=== PATIENT | male | born 1950 | race Caucasian/White ===

== ENCOUNTER 2017-07-27 19:40 | Emergency (ER) | payer MEDICARE, OTHER ==
[~2017-07-27] VITALS: Ht 177.8 cm; Wt 111.0 kg
[~2017-07-27 19:40] MED LIST: ALBU.63PRN; ARIM1TAB PO; ASPI325T PO; CYMB30CA PO; CYMB60CA PO; FENT100D T-DERMAL; GABA600T PO; HYDR-2768 PO; HYDR-3129 PO; LEVO150T7 PO; LISI-363 PO; METF500 PO; NIAC500 PO; OMEG1CAP53 PO; RED600TA PO; SYMB160A INH; TEST200I13 IM; VITA200017 PO; ZOLP10TA3 PO
[2017-07-27 19:41] VITALS: BP 136/79; PULSE 100; RESP 22; TEMP 97.7; O2SAT 98
[2017-07-27] MEDS ORDERED: ACETAMINOPHEN 325 MG TAB PO ONE (20:15)
[2017-07-27] MEDS ORDERED: methylPREDNISolone SOD SUCC 125 MG/2 ML VIAL IV PUSH ONE (20:15)
[2017-07-27] MEDS ORDERED: SODIUM CHLORID 0.9% 500 ML INJ 500 ML IV ONE ×2 (20:15→21:30)
[2017-07-27] MEDS ORDERED: SODIUM CHLORIDE 0.9% FLUSH 10 ML FLUSH IVF PRN (20:15)
[2017-07-27 20:20] VITALS: O2SAT 98
[2017-07-27 20:44] LABS: AUTOMATED NEUTROPHIL # 2.9 TH/MM3 (1.8-7.7); BASOPHIL % 0.5 % (0.0-2.0); EOSINOPHIL % 0.3 % (0.0-4.0); HEMATOCRIT 50.9 % (39.0-51.0); HEMO FLAGS DIFF FINAL; LYMPH % 22.1 % (9.0-44.0); MEAN CELL VOLUME 83.6 FL (80.0-100.0); MEAN CORPUSCULAR HEMOGLOBIN 27.6 PG (27.0-34.0); MONO % 12.9 % (0.0-8.0); NEUT % 64.2 % (16.0-70.0); PLATELET COUNT 170 TH/MM3 (150-450); RED BLOOD COUNT 6.09 MIL/MM3 (4.50-5.90); RED CELL DISTRIBUTION WIDTH 16.7 % (11.6-17.2); WHITE BLOOD COUNT 4.5 TH/MM3 (4.0-11.0)
--- NOTE | 2017-07-27 20:52 | RADRPT ---
EXAM DATE/TIME: 07/27/2017 20:28 [facility] COMPARISON: No previous studies available for comparison. INDICATIONS : Altered mental status. RADIATION DOSE: 56.35 CTDIvol (mGy) MEDICAL HISTORY : Hypertension. SURGICAL HISTORY : None. ENCOUNTER: Initial ACUITY: 1 day PAIN SCALE: 0/10 LOCATION: cranial TECHNIQUE: Multiple contiguous axial images were obtained of the head. Using automated exposure control and adj ustment of the mA and/or kV according to patient size, radiation dose was kept as low as reasonably a chievable to obtain optimal diagnostic quality images. DICOM format image data is available electro nically for review and comparison. FINDINGS: CEREBRUM: The ventricles are normal for age. No evidence of midline shift, mass lesion, hemorrhage or acute in farction. No extra-axial fluid collections are seen. POSTERIOR FOSSA: The cerebellum and brainstem are intact. The 4th ventricle is midline. The cerebellopontine angle i s unremarkable. EXTRACRANIAL: There is mucoperiosteal thickening of the visualized paranasal sinuses, especially ethmoid and spheno id. SKULL: The calvaria is intact. No evidence of skull fracture. CONCLUSION: No acute intracranial abnormality. Sinus disease. Vidal Pro MD on July 27, 2017 at 20:50 Board Certified Radiologist. This report was verified electronically.
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
[2017-07-27 21:00] LABS: APTT (PATIENT) 29.9 SEC (24.3-30.1); INTERNATIONAL NORMALIZED RATIO 1.1 RATIO
[2017-07-27 21:04] LABS: ANION GAP 7 MEQ/L (5-15); AST (GOT) 33 U/L (15-37); BICARBONATE 28.2 MEQ/L (21.0-32.0); BLOOD UREA NITROGEN 23 MG/DL (7-18); CHLORIDE 91 MEQ/L (98-107); GLOMERULAR FILTRATION RATE 60 ML/MIN (>89); POTASSIUM 3.6 MEQ/L (3.5-5.1); SODIUM (NA) 126 MEQ/L (136-145)
[2017-07-27 21:05] LABS: ALT (GPT) 31 U/L (12-78)
--- NOTE | 2017-07-27 21:05 | RADRPT ---
EXAM DATE/TIME: 07/27/2017 20:46 [facility] COMPARISON: No previous studies available for comparison. INDICATIONS : Short of breath. MEDICAL HISTORY : Diabetes mellitus type II. Chronic obstructive pulmonary disease. SURGICAL HISTORY : None. ENCOUNTER: Initial ACUITY: 1 day PAIN SCORE: 5/10 LOCATION: Bilateral chest FINDINGS: PA and lateral views of the chest demonstrate the lungs to be symmetrically aerated without evidence of mass, infiltrate or effusion. The cardiomediastinal contours are unremarkable. Osseous structure s are intact. CONCLUSION: No evidence of acute cardiopulmonary disease. Vidal Pro MD on July 27, 2017 at 21:03 Board Certified Radiologist. This report was verified electronically.
[2017-07-27] MEDS: RESP: ALBUTEROL 2.5 MG/IPRATROPIUM 0.5 MG NEB (SCH) INH (21:08)
[2017-07-27 21:09] LABS: ALKALINE PHOSPHATASE 63 U/L (45-117); TOTAL BILIRUBIN ADULT 0.5 MG/DL (0.2-1.0)
[2017-07-27 21:40] VITALS: BP 159/83; PULSE 95; RESP 22; O2SAT 99
[2017-07-27] MEDS ORDERED: MORPHINE SULFATE 4 MG/ML INJ IV PUSH ONE (21:45)
[2017-07-27] MEDS ORDERED: ONDANSETRON HCL 4 MG/2 ML VIAL IV PUSH ONE (21:45)
[2017-07-27] MEDS ORDERED: LORazepam 2 MG/ML VIAL IV PUSH ONE (22:00)
--- NOTE | 2017-07-28 11:31 | EKG ---
Date Performed: 07/27/2017 Time Performed: 20:19:53 PTAGE: 66 years EKG: Sinus rhythm MODERATE INTRAVENTRICULAR CONDUCTION DELAY BORDERLINE ECG NO PREVIOUS TRACING DOCTOR: Preston Rowe Interpretating Date/Time 07/28/2017 11:29:35
== END 2017-07-27 22:33 | disposition home or self-care (01) ==
LOC: NEPE 19:40 → EDSEX 19:40 → NEPE 22:33
DX: J11.1 Influenza due to unidentified influenza virus with other respiratory manifestations (principal); R06.02 Shortness of breath; R06.2 Wheezing; R07.9 Chest pain, unspecified; R05 Cough; R94.31 Abnormal electrocardiogram [ECG] [EKG]; I10 Essential (primary) hypertension; E11.9 Type 2 diabetes mellitus without complications; Z79.82 Long term (current) use of aspirin; Z79.84 Long term (current) use of oral hypoglycemic drugs; Z86.79 Personal history of other diseases of the circulatory system
CPT/HCPCS: 70450; 71020; 80053; 83880; 84484; 85025; 85610; 85730; 87804; 93005; 94640; 94664; 96361; 96374; 96375; 99285; J2060; J2405; J2930; J7040

== ENCOUNTER → 2018-03-12 | Outpatient (CLI) | payer OTHER, MEDICARE ==
[~2018-03-12] MED LIST changes: +BUTA1CAP PO; +CELE1CAP8 PO; +DULO1CAP2 PO; +FENT75T T-DERMAL; +HYDR-3583 PO; +HYDR25TA5 PO; +IPRA0.02 NEB; +LISI-519 PO; +METF500T PO; +METH750T PO; +OMEG1CAP28 PO; +PRAV40TA2 PO; +PROP40TA3 PO; +TEST200I12 IM
[2018-03-12 09:19] LABS: HEMATOCRIT 50.6 % (39.0-51.0); MEAN CELL VOLUME 89.8 FL (80.0-100.0); MEAN CORPUSCULAR HEMOGLOBIN 30.1 PG (27.0-34.0); MEAN CORPUSCULAR HGB CONC 33.5 % (32.0-36.0); PLATELET COUNT 193 TH/MM3 (150-450); RED BLOOD COUNT 5.64 MIL/MM3 (4.50-5.90); RED CELL DISTRIBUTION WIDTH 13.6 % (11.6-17.2); WHITE BLOOD COUNT 8.7 TH/MM3 (4.0-11.0)
[2018-03-12 09:27] LABS: PROTHROMBIN TIME - PATIENT 10.3 SEC (9.8-11.6)
[2018-03-12 09:28] LABS: BILIRUBIN, URINE NEG (NEG); BLOOD, URINE NEG (NEG); GLUCOSE,URINE NEG (NEG); HYALINE CAST, URINE 7 /lpf (RARE); KETONE, URINE NEG (NEG); MUCUS URINE FEW /lpf (OCC); NITRITE,URINE NEG (NEG); PH, URINE 5.5 (5.0-8.5); SQUAMOUS EPITHELIAL CELL URINE <1 /hpf (0-5); URINE COLOR YELLOW (YELLW/STRAW); URINE LEUKOCYTE ESTERASE NEG (NEG)
[2018-03-12 09:49] LABS: BICARBONATE 30.5 MEQ/L (21.0-32.0); CALCIUM 9.6 MG/DL (8.5-10.1); CREATININE 1.5 MG/DL (0.60-1.30)
== END ==
LOC: CPRE 08:14
PROVIDERS: ATTEND Orthopaedic Surgery
DX: Z01.812 Encounter for preprocedural laboratory examination (principal); M17.11 Unilateral primary osteoarthritis, right knee; M79.609 Pain in unspecified limb; I10 Essential (primary) hypertension; E11.9 Type 2 diabetes mellitus without complications
CPT/HCPCS: 36415; 80048; 81001; 85027; 85610; 85730

== ENCOUNTER 2018-03-26 07:16 | Inpatient (IN) | payer OTHER, MEDICARE ==
[~2018-03-26] VITALS: Ht 180.3 cm; Wt 106.9 kg
[~2018-03-26 07:16] MED LIST changes: -ALBU.63PRN; -ARIM1TAB PO; -ASPI325T PO; -CYMB30CA PO; -CYMB60CA PO; -FENT100D T-DERMAL; -GABA600T PO; -HYDR-2768 PO; -HYDR-3129 PO; -LISI-363 PO; -METF500 PO; -NIAC500 PO; -OMEG1CAP53 PO; -RED600TA PO; -TEST200I13 IM; -VITA200017 PO; -ZOLP10TA3 PO
[2018-03-26] MEDS ORDERED: EXPAREL PERI-ARTICULAR INJECTION (TOTAL VOL. 100 ML) P-ARTICULR SCH ×2 (08:15)
[2018-03-26] MEDS ORDERED: TRANEXAMIC ACID IV SCH ×3 (08:15→14:00)
[2018-03-26] MEDS ORDERED: SODIUM CHLORIDE 0.9% IV SCH ×3 (08:15→14:00)
[2018-03-26] MEDS ORDERED: CHLORHEXIDINE GLUCONATE 2 % 1 PACK (2 CLOTHS) TOPICAL PRN (08:15)
[2018-03-26] MEDS ORDERED: METOPROLOL TARTRATE 25 MG TAB PO PRN (08:15)
[2018-03-26] MEDS ORDERED: SODIUM CHLORID 0.9% 500 ML IV PRN (08:15)
[2018-03-26] MEDS ORDERED: LACTATED RINGER'S 1000 ML IV PRN (08:15)
[2018-03-26] MEDS ORDERED: POVIDONE IODINE 5% (ANTISEPSIS KIT) 4 APPLICATIONS EACH NARE PRN (08:15)
[2018-03-26] MEDS ORDERED: CHLORHEXIDINE GLUCONATE 4% SOLN 120 ML BTL TOPICAL SCH (08:15)
[2018-03-26] MEDS ORDERED: ceFAZolin 2 GM PREMIX 50 ML IV SCH (08:15)
[2018-03-26 08:29] VITALS: PULSE 60
[2018-03-26] MEDS ORDERED: MIDAZOLAM HCL 5 MG/5 ML VIAL IV ONE (09:15)
[2018-03-26] MEDS ORDERED: BUPIVACAINE LIPOSOME PF 1.3% 20 ML VIAL ONE (09:43)
[2018-03-26] MEDS ORDERED: BUPIVACAINE PF 0.75% DEX-WATER INJ 2 ML AMP ONE (09:49)
[2018-03-26] MEDS ORDERED: ACETAMINOPHEN 1000 MG/100 ML 100 ML IV ONE (09:53)
[2018-03-26] MEDS ORDERED: METOCLOPRAMIDE HCL 10 MG/2 ML VIAL ONE (09:53)
[2018-03-26] MEDS ORDERED: KETOROLAC TROMETHAMINE 30 MG/ML (IVP) VIAL IVP SCH (10:00)
[2018-03-26] MEDS ORDERED: ZOLPIDEM TARTRATE 5 MG TAB PO PRN (10:00)
[2018-03-26] MEDS ORDERED: ACETAMINOPHEN/HYDROcodone 325 MG/7.5 MG TAB PO PRN (10:00)
[2018-03-26] MEDS ORDERED: BUTALBITAL ACETAMINOPHEN CAFFEINE PO PRN (10:00)
[2018-03-26] MEDS ORDERED: Post-op Orders (for Pharmacy) XX ONE (10:00)
[2018-03-26] MEDS ORDERED: ECASA81 PO (10:07)
--- NOTE | 2018-03-26 10:08 | HHI.FF ---
Face to Face Verification Diagnosis: (1) Status post total right knee replacement Physical Therapy Gait training Knee: Total knee, Protocol: Right, Gait training, Full weight bearing Right LE Weight Bearing: WB as tolerated Right LE Range of Motion: Active ROM (Active, active assisted and passive range of motion. Range of motion goal is 0 extension to 135 of flexion.) Nursing Nursing: Dressing changes Dressing Changes: Daily dressing change, Coverderm/Primapore Additional Instructions Do not remove Dermabond Prineo. I have seen patient Tristen Rowe on 03/26/18. My clinical findings support the need for the requested home health care services because: Ltd mobility - disease progression Limited ability to care for self High risk of falls I certify that my clinical findings support that this patient is homebound because: Post-op weakness Unsteady gait/balance Unsafe to leave home unassisted Jose R Rowland MD (Charles) March 26, 2018 10:08
[2018-03-26] MEDS ORDERED: FAMOTIDINE 20 MG/2 ML VIAL ONE (10:37)
[2018-03-26] MEDS ORDERED: GENTAMICIN SULFATE 80 MG/2 ML VIAL ONE (11:12)
[2018-03-26] MEDS ORDERED: NEOSTIGMINE 5 MG/5 ML SYRINGE IV PUSH ONE (12:00)
[2018-03-26] MEDS ORDERED: ROCURONIUM INJ 50 MG/5 ML SYRINGE IV PUSH ONE (12:00)
[2018-03-26] MEDS ORDERED: GLYCOPYRROLATE 1 MG/5 ML SYRINGE IV PUSH ONE (12:00)
[2018-03-26] MEDS ORDERED: MAGNESIUM HYDROXIDE SUSP 30 ML CUP PO PRN (12:00)
[2018-03-26] MEDS ORDERED: ePHEDrine/NS 25 MG/5 ML SYRINGE IV ONE (12:00)
[2018-03-26] MEDS ORDERED: ceFAZolin INJ 1,000 MG VIAL IV ONE (12:00)
[2018-03-26] MEDS ORDERED: MORPHINE SULFATE 4 MG/ML INJ IV PUSH PRN (12:00)
[2018-03-26] MEDS ORDERED: LIDOCAINE HCL 1% PF 5 ML SYRINGE OTHER ONE (12:00)
[2018-03-26] MEDS ORDERED: LACTATED RINGER'S 1000 ML INJ 1,000 ML IV ONE (12:00)
[2018-03-26] MEDS ORDERED: DEXAMETHASONE SOD PHOS 4 MG/ML VIAL IV ONE (12:00)
[2018-03-26] MEDS ORDERED: ONDANSETRON HCL 4 MG/2 ML VIAL IVP PRN (12:00)
[2018-03-26] MEDS ORDERED: PROPOFOL 200 MG/20 ML AMP IV ONE (12:00)
[2018-03-26] MEDS ORDERED: PHENYLEPH/NS 1000 MCG/10 ML SYR IV ONE (12:00)
[2018-03-26] MEDS ORDERED: fentaNYL 75 MCG/HR PATCH T-DERMAL SCH (13:00)
--- NOTE | 2018-03-26 13:47 | PD.OP ---
Operative Report Date of Surgery: March 26, 2018 Preoperative Diagnosis: (1) Primary osteoarthritis of right knee Postoperative Diagnosis: (1) Primary osteoarthritis of right knee Procedure: Right total knee arthroplasty using [place] Triathlon prosthesis (uncemented). Anesthesia: General endotracheal with supplemental adductor canal block regional and local with Exparel. Surgeon: Alber Rowland MD Rib Chopper(s): ALON Wade Operation and Findings: Indications and Findings: This 67-year-old man has had right knee pain for many years. He had arthroscopic surgery in [place]. He has had progressive worsening pain since then to the point that he has an ambulation tolerance of 1/ 2 mile. He has pain when ascending and descending hills, entering and exiting his vehicle and other activities. He has not responded to conservative measures including nonsteroidal anti-inflammatory agents, activity modification , exercise, intra-articular corticosteroids and ambulatory aids. Physical findings showed genuine varum with tenderness and crepitation in the medial compartment especially but also patellofemoral. Radiographic findings showed loss of articular cartilage to bone on bone in the medial compartment with tricompartmental disease and calcific change in the menisci. Operative findings: There was loss of articular cartilage and [id number] in the medial compartment with osteophytes medially, laterally and in the patellofemoral compartment. There is irregularity and cartilage destruction in the patellofemoral and lateral compartments as well. The prosthesis used was a [place] Triathlon prosthesis. The femur was a size 6, cruciate retaining, uncemented. The tibial baseplate was a size 7 Tritanium with a 9 mm cruciate retaining X3 polyethylene spacer. The patella was a size 38 mm asymmetric Tritanium backed. The patient was brought to the clean-air operating suite. A spinal anesthetic was administered as well as a regional anesthetic by adductor canal block. The position was supine with a small bolster under the hip on the operative side. A pneumatic tourniquet was applied to the upper thigh. The lower extremity was then prepped with alcohol, Hibiclens and ChloraPrep and draped in the usual manner with the knee draped free. An appropriate timeout procedure was carried out. An incision was made from about 3 fingerbreadths above the superior medial pole of patella down the tibial tubercle on the medial side. The incision was deepened through the subcutaneous tissue to the retinacular structures which were exposed medially and laterally. A medial retinacular incision was then made from the superior middle pole of patella down the tibial tubercle and up into the quadriceps tendon splitting it longitudinally and the medial one third. The patella was reflected. The infrapatellar fat pad was debulked. The anterior cruciate ligament was excised. Medial and lateral meniscectomies were initiated. Fenestrations were made in the distal femur and proximal tibia for intramedullary referencing guides. The distal femoral cutting guide and jig were then assembled for a 5, 8 mm cut. When this was fit position and placed cutting block was stabilized with pins. The jig was removed. The distal femoral cut was then completed with the oscillating saw. The sizing guide was then positioned in place along Whitesides line and the epicondylar axis and stabilized with pins. The femoral size was then determined as noted above. The 4-in-1 cutting block was then positioned in place. Anterior and posterior cuts were made followed by posterior and anterior chamfer cuts taking care to prevent injury to ligamentous structures. Osteophytes were then trimmed from the distal femur. A bone plug was then placed into the fenestration of the distal femur. The proximal tibia was then exposed. The medial and lateral meniscectomies were completed. The proximal tibial cutting guide was then positioned in place and stabilized with a pin for rotation. The depth of cut was then verified with a stylus off the lateral side. The cutting block was stabilized with pins. The jig was removed. The depth of cut was then verified and adjusted appropriately with the use of the spacer block. The proximal tibial cut was then made with the oscillating saw taking care to prevent injury to neurovascular and ligamentous structures. Proximal tibial bone was removed. After verifying the amount of resection with the spacer block, additional resection was carried out. Local anesthetic was administered with Exparel in the posterior capsule. The tibial baseplate trial was then positioned in place. After verifying the appropriate size, the base plate trial was positioned in place along with its spacer. The femoral component was then impacted into place. The alignment was checked. The tibial baseplate was then pinned in place on the tibia. Attention was directed to the patella. The patella drill guide was positioned in place for the appropriate sized patella. Patellar drilling was then carried out. The trial patella was positioned in place. The knee was taken through a range of motion which was easily 0 extension to 135. The patella trial was removed. The femoral drill holes were made. The femoral trials were removed. The tibial spacer was removed. A bone plug was placed into the proximal tibia. The tibial punch was impacted through the proximal tibial punch guide. This was all removed followed by placement of the tibial drill guide. The tibial drill holes were then made. The guide was removed. The cut ends of bone were then cleaned with pulse lavage. The tibial baseplate was then impacted into place and seated appropriately. The spacer was inserted. The the femoral component was then impacted into place and seated appropriately. The patella component was then seated with the patellar vice and tightened appropriately. The knee was taken through a range of motion which was comparable to the previous range of motion with excellent stability in flexion and extension and appropriate patellofemoral tracking. The remainder of the Exparel was then injected throughout the knee as a local anesthetic. Drains were brought out the superior lateral aspect of the suprapatellar pouch. Wound closure then commenced using 0 Vicryl interrupted [id number] sutures for the capsular and fascial structures, 2-0 Vicryl interrupted simple sutures with buried knots for the subcutaneous tissues and 4- 0 Monocryl, continuous subcuticular closure for the skin. The wound was then dressed with Dermabond Prineo followed by Optifoam silver impregnated dressing. Sterile soft roll with a cooling pad and Rojelio bandage from the base of the toes to mid thigh were then applied. Patient was then transferred from the operating room to the recovery room in satisfactory condition having tolerated procedure well. Counts are correct. Specimens: None. Estimated blood loss: 350 mL Jose R Rowland MD ([place]) March 26, 2018 13:47
[2018-03-26] MEDS ORDERED: DO NOT ADM ANY ANTICOAGULANT DRUGS PRN (14:05)
[2018-03-26] MEDS ORDERED: *morphine SULFATE 8 MG/ML PERIprocedure ONLY ONE (14:16)
[2018-03-26] MEDS ORDERED: *MEPERIDINE 25 MG INJ VIAL PERIprocedural Use ONLY ONE (14:24)
[2018-03-26] MEDS ORDERED: *morphine SULFATE 4 MG/ML PERIprocedure ONLY ONE (14:31)
--- NOTE | 2018-03-26 14:38 | PD.CONS ---
[facility] By Orthopedic surgery Dr. Rowland Reason for Consult Medical management history of hypertension, diabetes type 2, COPD Primary Care Physician Ki Henning MD Diagnoses: History of Present Illness Patient is a very pleasant 67-year-old male with known history of hypertension, diabetes type 2, hypertension who is admitted under orthopedic services and underwent total knee replacement of the right. Patient states has been increasing pain and swelling and would occasionally needs a cane for ambulation. However patient is still very independent with all ADLs. Increasin difficulty and pain ambition prompted consult and was admitted and [facility]. Patient states good hypoglycemic awareness, chronic pain controlled on regimen. He does not recall his A1c number but he said he had one done last February which was "good." Review of Systems Constitutional: DENIES: Fever, Weight loss, Chills, Change in appetite Endocrine: DENIES: Heat/cold intolerance, Polydipsia, Polyuria, Polyphagia Eyes: DENIES: Blurred vision, Diplopia, Eye inflammation, Eye pain, Vision loss , Photosensitivity, Double Vision Ears, nose, mouth, throat: DENIES: Tinnitus, Hearing loss, Vertigo, Nasal discharge, Oral lesions, Throat pain, Hoarseness, Ear Pain, Running Nose, Epistaxis, Sinus Pain, Toothache, Odynophagia Respiratory: DENIES: Apneas, Cough, Snoring, Wheezing, Hemoptysis, Sputum production, Shortness of breath Cardiovascular: DENIES: Chest pain, Palpitations, Syncope, Dyspnea on Exertion , PND, Lower Extremity Edema, Orthopnea, Claudication Gastrointestinal: DENIES: Abdominal pain, Black stools, Bloody stools, Constipation, Diarrhea, Nausea, Vomiting, Difficulty Swallowing, Anorexia Genitourinary: DENIES: Sexual dysfunction, Urinary frequency, Urinary incontinence, Urgency, Hematuria, Dysuria, Nocturia, Penile Discharge, Testicular Pain, Testicular Swelling Musculoskeletal: COMPLAINS OF: Joint pain, Stiffness (Shoulders occasional pain bilateral) Integumentary: DENIES: Abnormal pigmentation, Nail changes, Pruritus, Rash Hematologic/lymphatic: DENIES: Bruising, Lymphadenopathy Immunologic/allergic: DENIES: Eczema, Urticaria Neurologic: DENIES: Abnormal gait, Headache, Localized weakness, Paresthesias, Seizures, Speech Problems, Tremor, Poor Balance Psychiatric: DENIES: Anxiety, Confusion, Mood changes, Depression, Hallucinations, Agitation, Suicidal Ideation, Homicidal Ideation, Delusions Past Family Social History Allergies: Coded Allergies: albuterol (Verified Adverse Reaction, Severe, Tachycardia, 03/26/18) Past Medical History Hypertension, diabetes type 2, hypothyroidism, chronic pain, COPD Past Surgical History Patient states had right knee surgery 1973 and again in 2010 arthroscopic surgery for the right knee Left rotator cuff surgery Reported Medications Methocarbamol Pravastatin [place]-3 fatty acids Propranolol Lisinopril Celebrex Lortab 10 Cymbalta Hydrochlorothiazide Symbicort Fentanyl patch Metformin Synthroid Family History Father his heart conditions Brother has history of lung cancer One sister with history of lymphoma Social History History of smoking quit 20 years ago History of alcohol use quit 25 years ago Physical Exam Vital Signs Vital Signs Date Time Temp Pulse Resp B/P (MAP) Pulse Ox O2 Delivery O2 Flow Rate FiO2 03/26/18 10:19 61 16 113/66 (82) 99 03/26/18 08:29 97 Nasal Cannula 03/26/18 08:29 60 03/26/18 07:56 99.1 65 16 144/76 (98) 96 Physical Exam GENERAL: This is a well-nourished, well-developed patient, in no apparent distress. SKIN: No rashes, ecchymoses or lesions. Cool and dry. HEAD: Atraumatic. Normocephalic. EYES: Pupils equal round and reactive. Extraocular motions intact. No scleral icterus. No injection or drainage. ENT: Nose without bleeding, . Throat without erythema, t NECK: Trachea midline. No JVD or lymphadenopathy. Supple, nontender, no meningeal signs. CARDIOVASCULAR: Regular rate and rhythm without murmurs, gallops, or rubs. RESPIRATORY: Clear to auscultation. Breath sounds equal bilaterally. No wheezes , rales GASTROINTESTINAL: Abdomen soft, non-tender, nondistended. No guarding. MUSCULOSKELETAL: Right knee with postop dressing in place, Hemovac in place NEUROLOGICAL: Awake and alert. Cranial nerves II through XII intact. Motor and sensory grossly within normal limits. Normal speech. Assessment and Plan Assessment and Plan 67-year-old male admitted Status post right total knee arthroplasty 03/26 -Orthopedic service is following as needed pain meds History of chronic pain. Currently on as needed pain meds. Continue on fentanyl patch, Cymbalta History of hypertension, hyperlipidemia -Continue home meds hydrochlorothiazide, lisinopril, propranolol. [place]-3 fatty acids. History of hypothyroidism on Synthroid replacement History of diabetes type 2 ADA diet. As outpatient on metformin will hold for now with mildly elevated creatinine Kidney insufficiency likely chronic we do not have any baseline creatinine for comparison. Patient currently getting gentle hydration postop. -Repeat BMP in a.m. hold NSAIDs-Mobic as well COPD. Continue on inhalers. Patient on aspirin twice daily for DVT prophylaxis per orthopedics. Thank you for this consult will follow patient in-house with you Discussed Condition With Patient Arnie Lozano MD March 26, 2018 14:37
--- NOTE | 2018-03-26 15:25 | RADRPT ---
EXAM DATE/TIME: 03/26/2018 14:42 CORRECTION Corrected on: March 28, 2018; Corrected Report date [place] COMPARISON: No previous studies available for comparison. INDICATIONS : Post op right knee MEDICAL HISTORY : None. SURGICAL HISTORY : right knee replaced ENCOUNTER: Initial ACUITY: 1 day PAIN SCORE: Non-responsive. LOCATION: Right knee FINDINGS: Postsurgical features of right knee arthroplasty. Arthroplasty components are in anatomic alignment. No significant acute bony fracture. Immediate postsurgical soft tissue features. CONCLUSION: 1. Status post right knee arthroplasty in anatomic alignment without significant acute bony fracture. Ottoniel Hawkins MD on March 26, 2018 at 15:22 Board Certified Radiologist. This report was verified electronically.
[2018-03-26] MEDS: METHOCARBAMOL 500 MG TAB PO SCH ×2 (16:01→18:00)
[2018-03-26] MEDS: ACETAMINOPHEN/HYDROcodone 325 MG/7.5 MG TAB PO PRN ×2 (16:02→20:06)
[2018-03-26] MEDS: KETOROLAC TROMETHAMINE 30 MG/ML (IVP) VIAL IVP SCH ×2 (16:03→22:50)
[2018-03-26 16:28] VITALS: BP 122/61; PULSE 86; RESP 17; TEMP 98.4; O2SAT 96
[2018-03-26] MEDS ORDERED: ACETAMINOPHEN PO PRN (16:45)
[2018-03-26] MEDS ORDERED: BUTALBITAL PO PRN (16:45)
[2018-03-26] MEDS ORDERED: CAFFEINE PO PRN (16:45)
[2018-03-26 20:00] VITALS: BP 135/64; PULSE 92; RESP 18; TEMP 98.2; O2SAT 95
[2018-03-26] MEDS: ASPIRIN EC 81 MG TABEC PO SCH (20:06)
[2018-03-26] MEDS ORDERED: NON-FORMULARY DRUG (Omega-3-Acid Ethyl Esters 2 GM) PO SCH (21:00)
[2018-03-26] MEDS: BUDESONIDE-FORMOTEROL 160/4.5 MCG INHALER INH SCH (21:44)
[2018-03-26] MEDS: PROPRANOLOL HCL 40 MG TAB PO SCH (21:44)
[2018-03-27 00:39] VITALS: BP 106/62; PULSE 82; RESP 18; TEMP 99.4; O2SAT 96
[2018-03-27] MEDS: LACTATED RINGER'S 1000 ML INJ 1,000 ML IV SCH ×2 (02:48→13:00)
[2018-03-27] MEDS: ACETAMINOPHEN/HYDROcodone 325 MG/7.5 MG TAB PO PRN ×4 (02:59→14:30)
[2018-03-27 04:07] LABS: HEMOGLOBIN 12.7 GM/DL (13.0-17.0)
[2018-03-27 04:28] LABS: BICARBONATE 30.6 MEQ/L (21.0-32.0); CALCIUM 7.8 MG/DL (8.5-10.1); CREATININE 1.28 MG/DL (0.60-1.30)
[2018-03-27] MEDS: KETOROLAC TROMETHAMINE 30 MG/ML (IVP) VIAL IVP SCH ×2 (04:50→10:33)
[2018-03-27 04:53] VITALS: BP 109/58; PULSE 60; RESP 18; TEMP 98.7; O2SAT 99
[2018-03-27] MEDS ORDERED: LEVOTHYROXINE SODIUM 150 MCG TAB PO SCH (06:00)
--- NOTE | 2018-03-27 06:11 | PD.ORT.PN ---
Subjective Post Op Day #: 1 Subjective Remarks He is doing well. He has minimal complaints related to the knee at this time. Range of Motion -5 extension to 86 of flexion. Distance Walked 60 feet with physical therapy. Objective Vitals Vital Signs Date Time Temp Pulse Resp B/P (MAP) Pulse Ox O2 Delivery O2 Flow Rate FiO2 03/27/18 04:53 98.7 60 18 109/58 (75) 99 03/27/18 00:39 99.4 82 18 106/62 (77) 96 03/26/18 21:06 18 03/26/18 20:00 98.2 92 18 135/64 (87) 95 03/26/18 16:28 98.4 86 17 122/61 (81) 96 03/26/18 15:20 98.1 81 16 132/79 (96) 93 Room Air 03/26/18 15:00 81 14 132/79 (96) 93 Room Air 03/26/18 14:45 83 14 133/79 (97) 94 Room Air 03/26/18 14:30 83 14 133/77 (95) 97 Room Air 03/26/18 14:15 83 14 134/76 (95) 94 Room Air 03/26/18 14:11 98.1 80 16 134/74 (94) 98 Room Air 03/26/18 10:19 61 16 113/66 (82) 99 03/26/18 08:29 97 Nasal Cannula 03/26/18 08:29 60 03/26/18 07:56 99.1 65 16 144/76 (98) 96 I/O 03/26/18 03/26/18 03/26/18 03/27/18 03/27/18 03/27/18 07:00 15:00 23:00 07:00 15:00 23:00 Intake Total 2000 ml 580 ml Output Total 300 ml 240 ml Balance 1700 ml 340 ml Intake Oral 480 ml IV Total 100 ml Other 2000 ml Drainage Total 240 ml Estimated Blood Loss 300 ml Result Diagram: 03/27/18 0400 03/27/18 0400 Imaging Last 24 hours Impressions Knee X-Ray 03/26/18 0957 Signed Impressions: Service Date/Time: Tuesday, March 27, 2018 02:42 - CONCLUSION: 1. Status post right knee arthroplasty in anatomic alignment without significant acute bony fracture. Ottoniel Hawkins MD Objective Remarks He is resting comfortably, supine in bed, in the [facility]. The neurovascular status is intact. The dressing is dry and intact. Assessment & Plan Ortho Post Op Day #: 1 Problem List: (1) Primary osteoarthritis of right knee ICD Codes: M17.11 - Unilateral primary osteoarthritis, right knee Status: Resolved (2) Status post total right knee replacement ICD Codes: Z96.651 - Presence of right artificial knee joint Plan: Continue postop care and PT Assessment and Plan Condition: Good. Orthopedically stable. DVT prophylaxis: TEDs, aspirin, sequentials. Discharge plans: Home with home health care. An appointment was scheduled through the office. Prescriptions: [place] 7.5/325 Jose R Rowland MD ([place]) March 27, 2018 06:11
[2018-03-27] MEDS ORDERED: HYDR-3580 PO (06:24)
[2018-03-27] MEDS ORDERED: fentaNYL 75 MCG/HR PATCH T-DERMAL SCH (07:45)
[2018-03-27 08:02] VITALS: BP 116/66; PULSE 56; RESP 18; TEMP 98.7; O2SAT 98
[2018-03-27] MEDS: ASPIRIN EC 81 MG TABEC PO SCH (08:53)
[2018-03-27] MEDS: METHOCARBAMOL 500 MG TAB PO SCH ×2 (08:54→14:01)
[2018-03-27] MEDS: PROPRANOLOL HCL 40 MG TAB PO SCH (08:54)
[2018-03-27] MEDS: BUDESONIDE-FORMOTEROL 160/4.5 MCG INHALER INH SCH (08:56)
[2018-03-27] MEDS ORDERED: HYDROCHLOROTHIAZIDE 25 MG TAB PO SCH (09:00)
[2018-03-27] MEDS ORDERED: LISINOPRIL 5 MG TAB PO SCH (09:00)
[2018-03-27] MEDS ORDERED: PRAVASTATIN SOD 40 MG TAB PO SCH (09:00)
[2018-03-27] MEDS ORDERED: CELECOXIB 200 MG CAP PO SCH (09:00)
[2018-03-27] MEDS ORDERED: DULoxetine HCl DR 30 MG CAP PO SCH (09:00)
[2018-03-27] MEDS ORDERED: metFORMIN HCL 500 MG TAB PO SCH (09:00)
[2018-03-27 12:03] VITALS: BP 109/61; PULSE 57; RESP 17; TEMP 98.6; O2SAT 97
--- NOTE | 2018-03-27 12:35 | HHI.PR ---
Subjective Remarks Patient sitting up in chair. Denies any pain. Ready to go home, states he is just waiting on equipment to be set up. No chest pain or SOB. Objective Vitals Vital Signs Date Time Temp Pulse Resp B/P (MAP) Pulse Ox O2 Delivery O2 Flow Rate FiO2 03/27/18 12:03 98.6 57 17 109/61 (77) 97 03/27/18 11:33 18 03/27/18 11:33 18 03/27/18 08:02 98.7 56 18 116/66 (83) 98 03/27/18 04:53 98.7 60 18 109/58 (75) 99 03/27/18 00:39 99.4 82 18 106/62 (77) 96 03/26/18 20:00 98.2 92 18 135/64 (87) 95 03/26/18 16:28 98.4 86 17 122/61 (81) 96 03/26/18 15:20 98.1 81 16 132/79 (96) 93 Room Air 03/26/18 15:00 81 14 132/79 (96) 93 Room Air 03/26/18 14:45 83 14 133/79 (97) 94 Room Air 03/26/18 14:30 83 14 133/77 (95) 97 Room Air 03/26/18 14:15 83 14 134/76 (95) 94 Room Air 03/26/18 14:11 98.1 80 16 134/74 (94) 98 Room Air I/O 03/26/18 03/26/18 03/26/18 03/27/18 03/27/18 03/27/18 07:00 15:00 23:00 07:00 15:00 23:00 Intake Total 2000 ml 580 ml 1309 ml Output Total 300 ml 240 ml 120 ml Balance 1700 ml 340 ml 1189 ml Intake Oral 480 ml IV Total 100 ml 1309 ml Other 2000 ml Drainage Total 240 ml 120 ml Estimated Blood Loss 300 ml Result Diagram: 03/27/18 0400 03/27/18 0400 Objective Remarks GENERAL: In NAD SKIN: Warm and dry. Dressing dry and intact CARDIOVASCULAR: Regular rate and rhythm. RESPIRATORY: No accessory muscle use. Clear to auscultation. Breath sounds equal bilaterally. GASTROINTESTINAL: Abdomen soft, non-tender, nondistended. BSx4 MUSCULOSKELETAL: Extremities without clubbing, cyanosis, or edema. No obvious deformities. NEUROLOGICAL: Awake and alert. Normal speech. PSYCHIATRIC: Appropriate mood and affect; insight and judgment normal. A/P Assessment and Plan 67-year-old male admitted Status post right total knee arthroplasty 03/26 -Orthopedic service is following as needed pain meds History of chronic pain. Currently on as needed pain meds. Continue on fentanyl patch, Cymbalta History of hypertension, hyperlipidemia -Continue home meds hydrochlorothiazide, lisinopril, propranolol. [place]-3 fatty acids. History of hypothyroidism on Synthroid replacement History of diabetes type 2 ADA diet. GFR 56, will need outpatient follow up while on metformin. ACCU checks with SSI COPD. Continue on inhalers. Discharge Planning per Loulou White March 27, 2018 12:35
--- NOTE | 2018-03-27 12:37 | HHI.DS ---
Discharge Summary Admission Date March 26, 2018 at 07:16 Discharge Date: March 27, 2018 Admitting Diagnosis Primary osteoarthritis, right knee. Diagnosis: (1) Primary osteoarthritis of right knee Diagnosis: Principal ICD Codes: M17.11 - Unilateral primary osteoarthritis, right knee Status: Resolved (2) Status post total right knee replacement Diagnosis: Principal ICD Codes: Z96.651 - Presence of right artificial knee joint Procedures Right total knee arthroplasty using [place] [employer] prosthesis (uncemented) on 03/26/2018. Brief History This is a 67 year old male patient has had long-standing right knee pain secondary to osteoarthritis which has been nonresponsive to conservative measures as detailed in the history and physical examination. Physical findings showed genuine varum with tenderness in the medial compartment diffuse crepitation. There is medial laxity. X-ray showed severe arthritis with loss of articular cartilage to [id number]. CBC/BMP: 03/27/18 0400 03/27/18 0400 Significant Findings Laboratory Tests Test 03/27/18 04:00 Hemoglobin 12.7 GM/DL (13.0-17.0) Hematocrit 38.0 % (39.0-51.0) Blood Urea Nitrogen 23 MG/DL (7-18) Random Glucose 164 MG/DL (74-106) Calcium Level 7.8 MG/DL (8.5-10.1) Estimat Glomerular Filtration Rate 56 ML/MIN (>89) Imaging Last 72 hours Impressions Knee X-Ray 03/26/18 0957 Signed Impressions: Service Date/Time: Tuesday, March 27, 2018 02:42 - CONCLUSION: 1. Status post right knee arthroplasty in anatomic alignment without significant acute bony fracture. Ottoniel Hawkins MD PE at Discharge He is resting comfortably, supine in bed, in the [facility]. The neurovascular status is intact. The dressing is dry and intact. Hospital Course The patient was admitted as noted above. The above noted operative procedure was carried out that day. Preoperatively prophylactic antibiotics were administered Ancef according to protocol. These were continued postoperatively. The patient also received tranexamic acid to help with hemostasis according to protocol. In the postanesthesia care unit a continuous passive motion device was initiated. Also initiated were mechanical methods of DVT prophylaxis in the form of ANGUS stockings and sequentials. Physical therapy was initiated on the day of surgery. On postoperative day #1 physical therapy continued. The use of the continuous passive motion device continued. DVT prophylaxis with aspirin 81 mg was initiated at this time. The patient continued physical therapy throughout the hospitalization. The distance walked and range of motion improved throughout the hospitalization. The patient was discharged on postoperative day 1 with the disposition being to home with home health care. An appointment for follow-up was made prior to admission. Pt Condition on Discharge: Good Discharge Disposition: Disch w/ Home Health Serv Discharge Instructions Diet Instructions: As Tolerated, No Restrictions Activities You Can Perform: Full Weight Bearing, Shower Only-No Bath Activities to Avoid: Lifting/Bending, Strenuous Activity, Bathing, Driving Follow up Referrals: Orthopedics with Jose R Rowland MD ([place]) New Medications: Aspirin DR (Aspirin DR) 81 Mg Tabdr 81 MG PO BID for Prevent Blood Clot for 30 Days, #60 TAB Hydrocodone/Acetaminophen (Hydrocodone-Acetamin 7.5-325) 7.5 Mg-325 Mg Tablet 1 TAB PO Q4H PRN for PAIN SCALE 1 TO 10, #30 TAB Continued Medications: Budesonide-Formoterol Inh (Symbicort Inh) 160-4.5 Mcg/Act Aero 2 PUFF INH Q12HR, #1 INHALER 0 Refills Otnmmnicnv-Qfvsmmcijhbjn-Lprchjik (Fioricet) 50-300-40 Mg Cap 1 CAP PO Q6HR PRN for HEADACHE, CAP 0 Refills Celecoxib (Celecoxib) 200 Mg Cap 200 MG PO DAILY for Pain Management, CAP [address] (Duloxetine DR) 30 Mg Capdr 30 MG PO DAILY, #30 CAP 0 Refills Fentanyl Patch 72 HR (Duragesic Patch 72 HR) 75 Mcg/Hr Patch 75 MCG T-DERMAL Q72H for Pain Management, #10 PATCH 0 Refills Remove old patch when new one placed. Hydrochlorothiazide (Hydrochlorothiazide) 25 Mg Tab 25 MG PO DAILY, #30 TAB 0 Refills Hydrocodone-Acetaminophen (Hydrocodone-Acetaminophen) 10-325 mg Tab 1 TAB PO Q4-6H PRN for PAIN, TAB 0 Refills Ipratropium Neb (Ipratropium Neb) 0.5 Mg/2.5 Ml Amp 0.5 MG NEB Q4-6H PRN for SHORTNESS OF BREATH, NEBULE 0 Refills Levothyroxine (Levothyroxine) 150 Mcg Tab 150 MCG PO DAILY for Thyroid, #30 TAB 0 Refills Lisinopril (Lisinopril) 5 Mg Tab 5 MG PO DAILY for Blood Pressure Management, #30 TAB 0 Refills Metformin (Metformin) 500 Mg Tab 500 MG PO DAILY for Blood Sugar Management, #30 TAB 0 Refills With a meal Methocarbamol (Methocarbamol) 750 Mg Tab 750 MG PO TID for Muscle Spasm, #120 TAB 0 Refills Tshny-6-Ojss Ethyl Esters (Jwxbe-9-Rmdl Ethyl Esters) 1 Gm Cap 2 GM PO BID for Manage Triglycerides, #120 CAP 0 Refills Pravastatin (Pravastatin) 40 Mg Tab 40 MG PO DAILY for Cholesterol Management, #30 TAB 0 Refills Propranolol (Propranolol) 40 Mg Tab 40 MG PO Q12HR, #60 TAB 0 Refills Testosterone Cypionate Inj (Testosterone Cypionate Inj) 200 Mg/Ml Inj 200 MG IM WEEKLY for Hormone Replacement, #1 INJECTION 0 Refills Jose R Rowland MD ([place]) March 27, 2018 12:37
[2018-03-27 15:30] VITALS: RESP 18
[2018-03-27] MEDS ORDERED: DOCUSATE SODIUM 100 MG CAP PO SCH (21:00)
== END 2018-03-27 15:52 | disposition home health service (06) | DRG 470 ==
LOC: HSDI 07:16 → N06B 15:27
PROVIDERS: ADMIT Orthopaedic Surgery; ATTEND Orthopaedic Surgery
PROC: 3E0T3BZ Introduction of Anesthetic Agent into Peripheral Nerves and Plexi, Percutaneous Approach (ICD-10-PCS; 2018-03-26)
PROC: 0SRC0JA Replacement of Right Knee Joint with Synthetic Substitute, Uncemented, Open Approach (ICD-10-PCS; principal; 2018-03-26 10:38)
DX: M17.11 Unilateral primary osteoarthritis, right knee (principal); J44.9 Chronic obstructive pulmonary disease, unspecified; I10 Essential (primary) hypertension; E11.9 Type 2 diabetes mellitus without complications; E03.9 Hypothyroidism, unspecified; G89.29 Other chronic pain; N28.9 Disorder of kidney and ureter, unspecified; E78.5 Hyperlipidemia, unspecified; Z87.891 Personal history of nicotine dependence; Z79.84 Long term (current) use of oral hypoglycemic drugs
CPT/HCPCS: 73560; 80048; 85014; 85018; 86850; 86900; 86901; 94150; C1776; C9290; J0131; J0690; J1100; J1580; J1885; J2175; J2250; J2270; J2370; J2710; J2765; J3010; J7120